=== PATIENT | male | born 1950 | race Caucasian/White ===

== ENCOUNTER 2020-07-24 09:34 | Emergency (ER) | payer BC, OTHER ==
--- NOTE | 2020-07-24 10:39 | RAD REPORT ---
EXAM DESCRIPTION: CT - Stone Protocol - 07/24/2020 10:10 am CLINICAL HISTORY: Flank pain. right flank pain COMPARISON: CT ABD PELVIS W CONTRAST dated 07/23/2009 TECHNIQUE: Axial images were obtained without oral or IV contrast. Lack of contrast limits solid org an and vascular assessment. The [id number] spans the entirety of the system partially obscuring uppermost abdomen and lung bases. Coronal reformatted images were obtained and reviewed. All CT scans are performed using dose optimization technique as appropriate and may include automated exposure control or mA/KV adjustment according to patient size. FINDINGS: Trace pleural fluid bilaterally with mild interstitial opacities in both lung bases. Imaged portions of the liver and spleen show no suspicious findings on non-contrast imaging.Mild infl ammation is seen surrounding the pancreatic head most compatible with mild acute pancreatitis. The ad renal glands are normal. No pathologic lymphadenopathy in the abdomen or pelvis. No urinary tract stones or obstructive uropathy. No bowel obstruction, free air, free fluid or abscess. Appendectomy.Sigmoid diverticulosis without di verticulitis. Moderate multilevel spondylosis of the lumbar spine. IMPRESSION: Mild acute pancreatitis is suspected. Suggest correlation with amylase and lipase levels .
[2020-07-24 10:50] LABS: Urine Blood TRACE (NEG); Urine Glucose NEGATIVE (NEG); Urine Protein NEGATIVE (NEG); Urine Specific Gravity 1.015 (1.005-1.030)
[2020-07-24 10:57] LABS: Absolute Lymphocytes (CBC) 1.4 K/uL (0.7-4.9); Basophils % 0.2 % (0-1.3); Hematocrit 48.1 % (39.6-49.0); Lymphocytes % 13.3 % (15.3-44.8); MPV 9.4 fL (7.6-11.3); RBC Red Blood Cell Count 5.03 M/uL (4.33-5.43)
[2020-07-24 11:26] LABS: Albumin 4.3 g/dL (3.4-5.0); Bilirubin Direct 0.2 mg/dL (0-0.2); Bilirubin Total 0.9 mg/dL (0.2-1.0)
--- NOTE | 2020-07-24 11:30 | RAD REPORT ---
EXAM DESCRIPTION: US - Abdomen Exam Limited - 07/24/2020 11:15 am CLINICAL HISTORY: ABD PAIN COMPARISON: No comparisons FINDINGS: The gallbladder demonstrates no gallstones. No pericholecystic fluid or gallbladder wall t hickening. The common bile duct is normal measuring 4 mm. The liver demonstrates no findings of intrahepatic biliary dilatation. IMPRESSION: Unremarkable examination.
--- NOTE | 2020-07-24 11:48 | EDPHYS ---
[facility] Name: Mukund Elam Age: 70 yrs Sex: Male : 1950 Arrival Date: 07/24/2020 Time: 09:39 Bed 6 Private MD: ED Physician Jason Haque HPI: 07/24 10:00 This 70 yrs old Male presents to ER via Ambulatory with complaints of Side jmm Pain. 10:00 The patient presents with abdominal pain. Onset: The symptoms/episode began/occurred jmm acutely, just prior to arrival. The symptoms do not radiate. Associated signs and symptoms: Pertinent positives: nausea, Pertinent negatives: diarrhea, vomiting. The symptoms are described as achy. This is a 70 year old male with a history of htn that pesents to the ED with complaints of right flank pain which began earlier this morning. Pain has been intermittent. Denies vomiting but states having some nausea. Patient has a surgical history of appendectomy. . Historical: - Allergies: 10:00 Chocolate; ll1 - PMHx: 10:00 A fib; Hypertension; bradycardia; sleep apnea; ll1 - PSHx: 10:00 thoracic aneurysm; part of stomach removed; Appendectomy; Left hip sx; ll1 - Immunization history:: Flu vaccine is not up to date. - Social history:: Smoking status: Patient denies any tobacco usage or history of. ROS: 10:00 Constitutional: Negative for fever, chills, and weight loss, Cardiovascular: Negative jmm for chest pain, palpitations, and edema, Respiratory: Negative for shortness of breath, cough, wheezing, and pleuritic chest pain. 10:00 Abdomen/GI: Positive for abdominal pain, nausea. 10:00 Back: Positive for flank pain. 10:00 All other systems are negative. Exam: 10:00 Constitutional: This is a well developed, well nourished patient who is awake, alert, jmm and in no acute distress. Head/Face: atraumatic. Eyes: EOMI, no conjunctival erythema appreciated ENT: Moist Mucus Membranes Neck: Trachea midline, Supple Chest/axilla: Normal chest wall appearance and motion. Cardiovascular: Regular rate and rhythm. No edema appreciated Respiratory: Normal respirations, no respiratory distress appreciated Abdomen/GI: Non distended, soft 10:00 Skin: General appearance color normal MS/ Extremity: Moves all extremities, no obvious deformities appreciated, no edema noted to the lower extremities Neuro: Awake and alert, normal gait Psych: Behavior is normal, Mood is normal, Patient is cooperative and pleasant 10:00 Back: CVA tenderness, that is mild, is noted on the right. Vital Signs: 09:58 BP 163 / 91; Pulse 72; Resp 17; Temp 98.0; Pulse Ox 08% ; Pain 5/10; ll1 11:44 BP 143 / 69; Pulse 71; Resp 16; Pulse Ox 97% on R/A; tw2 MDM: 09:49 Patient medically screened. victoria 11:46 Data reviewed: vital signs, nurses notes. Counseling: I had a detailed discussion with jefferson the patient and/or guardian regarding: the historical points, exam findings, and any diagnostic results supporting the discharge/admit diagnosis, lab results, radiology results, the need for outpatient follow up, to return to the emergency department if symptoms worsen or persist or if there are any questions or concerns that arise at home. Refusal of service: The patient/guardian displays adequate decision making capability and despite a detailed discussion of alternatives, benefits, risks, and consequences refuses: Admission to the hospital for further work-up and treatment. ED course: I discussed home treatment of pancreatitis. Advised to D/C ETOH use, advised to take clear liquids and given strict return precautions. Patient understood and agrees with the plan of care. . 07/24 10:00 Order name: Basic Metabolic Panel; Complete Time: 11:27 [facility] 07/24 10:00 Order name: CBC with Diff; Complete Time: 11:04 [facility] 07/24 10:00 Order name: Hepatic Function; Complete Time: 11:27 [facility] 07/24 10:00 Order name: Lipase; Complete Time: 11:27 [facility] 07/24 10:00 Order name: CT Stone Protocol; Complete Time: 10:44 [facility] 07/24 10:41 Order name: Urine Dipstick--Ancillary (enter results); Complete Time: 11:04 07/24 10:00 Order name: IV Saline Lock; Complete Time: 10:04 [facility] 07/24 10:00 Order name: Labs collected and sent; Complete Time: 10:44 [facility] 07/24 10:00 Order name: Urine Dipstick-Ancillary (obtain specimen); Complete Time: 10:44 [facility] 07/24 10:44 Order name: US Abdomen Limited; Complete Time: 11:35 [facility] Administered Medications: No medications were administered Disposition: 07/24/20 11:47 Discharged to Home. Impression: Acute pancreatitis. - Condition is Stable. - Discharge Instructions: Clear Liquid Diet, Adult, Acute Pancreatitis. - Prescriptions for Tylenol- Codeine #3 300-30 mg Oral Tablet - take 1 tablet by ORAL route every 6 hours As needed; 20 tablet. - Medication Reconciliation Form, Thank You Letter, Antibiotic Education, Prescription Opioid Use form. - Follow up: Private Physician; When: 2 - 3 days; Reason: Recheck today's complaints, Continuance of care, Re-evaluation by your physician. Addendum: 07/25/2020 18:03 Co-signature as Attending Physician, Jason Haque MD I agree with the assessment and c markham plan of care. Signatures: Dispatcher [employer] EDJason Green MD MD cha Mickail, Joel, PA PA [facility] Madhavi Elmore RN RN tw2 Ben Valdovinos RN RN ll1 Corrections: (The following items were deleted from the chart) 07/24 11:56 11:47 07/24/2020 11:47 Discharged to Home. Impression: Acute pancreatitis. Condition is tw2 Stable. Forms are Medication Reconciliation Form, Thank You Letter, Antibiotic Education, Prescription Opioid Use. Follow up: Private Physician; When: 2 - 3 days; Reason: Recheck today's complaints, Continuance of care, Re-evaluation by your physician. [facility]
--- NOTE | 2020-07-24 11:48 | ER ---
Nurse's Notes [facility] Name: Mukund Elam Age: 70 yrs Sex: Male : 1950 Arrival Date: 07/24/2020 Time: 09:39 Bed 6 Private MD: Diagnosis: Acute pancreatitis Presentation: 07/24 09:58 Chief complaint: Patient states: R side pain since 1 am. Nausea earlier, none now. No ll1 fever. Coronavirus screen: Client denies travel out of the [place] in the last 14 days. At this time, the client does not indicate any symptoms associated with coronavirus-19. Ebola Screen: Patient denies travel to an Ebola-affected area in the 21 days before illness onset. Initial Sepsis Screen: Does the patient meet any 2 criteria? No. Patient's initial sepsis screen is negative. Does the patient have a suspected source of infection? Yes: Acute abdominal pain. Risk Assessment: Do you want to hurt yourself or someone else? Patient reports no desire to harm self or others. Onset of symptoms was July 24, 2020. 09:58 Method Of Arrival: Ambulatory 1 09:58 Acuity: CESAR 3 ll1 Historical: - Allergies: 10:00 Chocolate; ll1 - PMHx: 10:00 A fib; Hypertension; bradycardia; sleep apnea; ll1 - PSHx: 10:00 thoracic aneurysm; part of stomach removed; Appendectomy; Left hip sx; ll1 - Immunization history:: Flu vaccine is not up to date. - Social history:: Smoking status: Patient denies any tobacco usage or history of. Screenin:00 Abuse screen: Denies threats or abuse. Nutritional screening: No deficits noted. em Tuberculosis screening: No symptoms or risk factors identified. Fall Risk None identified. Assessment: 10:40 General: Appears in no apparent distress. comfortable, Behavior is calm, cooperative, em appropriate for age, Denies fever. Pain: Complains of pain in anterior aspect of right lateral abdomen and posterior aspect of right lateral abdomen Pain currently is 5 out of 10 on a pain scale. Neuro: Level of Consciousness is awake, alert, obeys commands, Oriented to person, place, time, situation, Appropriate for age. Cardiovascular: Capillary refill < 3 seconds Patient's skin is warm and dry. Respiratory: Airway is patent Respiratory effort is even, unlabored, Respiratory pattern is regular, symmetrical. GI: Abdomen is flat, Patient currently denies nausea, vomiting. Derm: Skin is intact, is healthy with good turgor, Skin is pink, warm \T\ dry. Musculoskeletal: Capillary refill < 3 seconds, Range of motion: intact in all extremities. 11:45 Reassessment: Patient appears in no apparent distress at this time. No changes from tw2 previously documented assessment. Patient and/or family updated on plan of care and expected duration. Pain level reassessed. Patient is alert, oriented x 3, equal unlabored respirations, skin warm/dry/pink. Vital Signs: 09:58 BP 163 / 91; Pulse 72; Resp 17; Temp 98.0; Pulse Ox 08% ; Pain 5/10; ll1 11:44 BP 143 / 69; Pulse 71; Resp 16; Pulse Ox 97% on R/A; tw2 ED Course: 09:39 Patient arrived in ED. ds1 09:49 Nabil Friedman PA is PHCP. [facility] 09:49 Jason Haque MD is Attending Physician. [facility] 09:50 Gus Pierson, RISA is Primary Nurse. em 09:59 Triage completed. ll1 10:00 Patient has correct armband on for positive identification. Placed in gown. Bed in low em position. Call light in reach. Pulse ox on. NIBP on. 10:09 CT Stone Protocol In Process Unspecified. EDMS 10:42 No provider procedures requiring assistance completed. Initial lab(s) drawn, by tn, em sent to lab. Inserted saline lock: 20 gauge in right antecubital area, using aseptic technique. Blood collected. 11:17 US Abdomen Limited In Process Unspecified. EDMS 11:56 Arm band placed on. tw2 11:56 IV discontinued, intact, bleeding controlled, No redness/swelling at site. Pressure tw2 dressing applied. Administered Medications: No medications were administered Outcome: 11:47 Discharge ordered by . [facility] 11:56 Discharged to home ambulatory. tw2 11:56 Condition: stable 11:56 Discharge instructions given to patient, Instructed on discharge instructions, follow up and referral plans. no drinking with medication, no driving heavy equipment, medication usage, Demonstrated understanding of instructions, follow-up care, medications, Prescriptions given X 1. 11:56 Patient left the ED. tw2 Signatures: Dispatcher [employer] Nabil Hernández PA PA jmm Munoz, Edgar, RN RN Lita Licona ds1 Madhavi Elmore RN RN tw2 Ben Valdovinos RN RN ll1
[2020-07-24 12:13] VITALS: TEMP 98
[2020-07-24 12:15] VITALS: BP 143/69; O2SAT 97
== END 2020-07-24 11:56 | disposition home or self-care (01) ==
LOC: ER 09:34
DX: K85.90 Acute pancreatitis without necrosis or infection, unspecified (principal); I10 Essential (primary) hypertension; Z91.018 Allergy to other foods
CPT/HCPCS: 36415; 74176; 76377; 76705; 80048; 80076; 81003; 83690; 85025; 99284